=== PATIENT | female | born 1970 | race Caucasian/White ===

== ENCOUNTER 2019-10-22 22:12 | Emergency (ER) | payer OTHER, SELFPAY ==
[2019-10-22 22:17] VITALS: PULSE 92; RESP 18; TEMP 37; O2SAT 98; BMI 30.9
--- NOTE | 2019-10-22 22:43 | ECG_ITS ---
Measurements Intervals [place] Rate: 66 P: 60 WI: 161 QRS: 43 QRSD: 97 T: 23 QT: 387 QTc: 407 SINUS RHYTHM NONSPECIFIC T-WAVE ABNORMALITY No previous ECG available for comparison Electronically Signed On 10-23-2019 8:01:10 CDT by Randy Yanes M.D. [email or web address]
--- NOTE | 2019-10-22 22:44 | ED_ITS ---
HPI - Headache General: Chief Complaint: Headache Stated Complaint: [place] Time Seen by Provider: 10/22/19 22:33 History of Present Illness: HPI Narrative: Consuelo is a very nice 49-year-old female who comes in complaining of headache. She states this is her chronic migraine headache. She has a history of difficult to control bad migraines. She said this headache has not resolved with her at home regimen that she normally uses. The patient does come in requesting relief. She specifically states this was not a sudden onset thunderclap type headache, she has no fever or neck pain or stiffness. She states this is classically like her previous migraines she is just hoping to get relief with something through the IV here as her p.o. and IM medicines at home have not worked. Associated symptoms: Deny chest pain, confusion, diaphoresis, fever(s), malaise, nausea, pre-syncope, rash, syncope or vomiting Review of Systems General: Reports: other (negative unless marked) Const: Denies: fever, chills, body aches, fatigue, malaise or diaphoresis Eyes: Denies: change in vision or blurry vision ENMT: Denies: throat pain, painful swallowing, hoarseness, ear pain, ear discharge, Change in hearing or nasal discharge Card: Denies: chest pain, palpitations, irregular heart rhythm, syncope, pre- syncope, shortness of breath on exertion or shortness of breath when lying down Resp: Denies: shortness of breath, productive cough, non-productive cough, wheezing, coughing up blood or chest congestion GI: Denies: abdominal pain, nausea, vomiting, vomiting blood, coffee grounds in vomit, diarrhea, constipation, cramping, blood in stool or black tarry stool : Denies: flank pain, painful urination, urinary frequency, urinary urgency, decreased urine ouput, urinary incontinence or blood in urine Musc: Denies: neck pain, back pain, extremity pain, extremity swelling, joint pain, joint swelling, joint warmth or joint stiffness Skin/Breast: Denies: rash, skin tenderness or yellow skin Neuro: Reports: headache; Denies: numbness in extremities, weakness in extremities, changes in sensation, lack of coordination, difficulty walking, dizziness, vertigo or confusion Endo: Denies: excessive thirst, tired all the time, cold intolerance, excessive sweating, flushing or hot flashes Charly/Lymph: Denies: easy bruising, easy bleeding, petechiae or enlarged lymph nodes All/Imm: Denies: hives, throat swelling, tongue swelling, facial swelling or acute wheezing PFSH ED PFSH: Medical History Chronic migraine Exposure to COVID-19 virus Surgical History History of History of cholecystectomy History of hand surgery Social History Smoking and tobacco status: never smoked Alcohol intake: never Physical Exam Const: COMMON NORMALS: no apparent distress, oriented x3, no limitations, healthy appearing and well nourished EXAM LIMITATIONS: no altered mental status GENERAL APPEARANCE: cooperative, well kempt and well developed ORIENTATION/CONSCIOUSNESS: Yes awake HENMT: COMMON NORMALS: normocephalic, head/scalp atraumatic, hearing grossly normal bilaterally, external ears normal, EAC's normal, external nose normal and moist oral mucous membranes HEAD & SCALP: normal to inspection, normocephalic and atraumatic FACE & SINUS: normal facial exam and face symmetric NOSE: external nose normal and nares normal EXTERNAL EAR: Yes external ears normal EXTERNAL AUDITORY CANAL: EAC's normal MOUTH: oral and palatal mucosa normal and tongue normal Eye: COMMON NORMALS: PERRL, EOMs intact bilaterally, conjunctivae normal and no scleral icterus GENERAL EYE: normal appearance of both eyes and normal light reflex CONJUNCTIVA: Yes conjunctivae normal SCLERA: sclerae normal CORNEA: Yes corneas normal PUPIL: Yes PERRL DIRECT OPHTHALMOSCOPY: Yes normal light reflex Neck/C-Spine: COMMON NORMALS: full ROM, no lymphadenopathy, supple, no meningeal signs and no JVD GENERAL: Yes normal visual inspection and Yes trachea midline CERVICAL SPINE: Yes cervical ROM normal Chest: COMMONS NORMALS: inspection of chest normal and palpation of chest normal Resp: COMMON NORMALS: normal respiratory effort, no retractions, no use of accessory muscles and clear to auscultation bilaterally EFFORT & INSPECTION: Yes able to speak in complete sentences AUSCULTATION: clear to auscultation bilaterally Cardio: COMMON NORMALS: no JVD, regular rate, regular rhythm, S1 normal heart sound, S2 normal heart sound, no gallops, no clicks, no murmurs and no rub JUGULAR VENOUS DISTENTION: no JVD RATE: regular rate RHYTHM: regular rhythm HEART SOUNDS: S1 normal and S2 normal GI: COMMON NORMALS: soft to palpation, non-tender, no hepatosplenomegaly and no masses INSPECTION: Yes normal to inspection PALPATION: Yes soft and Yes no hepatosplenomegaly : COMMON NORMALS: Yes no CVA tenderness BLADDER/KIDNEY EXAM: Yes no CVA tenderness Back/Pelvis: COMMON NORMALS: no CVA tenderness, thoracic and lumbar spine normal to inspection, no thoracic nor lumbar tenderness and thoraco-lumbar ROM normal Extremity: COMMON NORMALS: normal to inspection, full ROM, normal capillary refill, no joint enlargement, no clubbing, cyanosis or edema and no calf tenderness Neuro: COMMON NORMALS: oriented x3, CN's II-XII intact bilaterally, moves all extremities, no focal motor deficits and no sensory deficits noted MENINGEAL SIGNS: Yes no meningeal signs Psych: COMMON NORMALS: mental status grossly normal, thought process normal, cooperative, affect normal, speech normal and activity/motor behavior normal APPEARANCE: Yes well kempt SPEECH: Yes normal speech THOUGHT PROCESS: normal thought process Skin: COMMON NORMALS: no rashes or lesions noted, skin turgor normal, no jaundice, no petechiae and no mottling GENERAL SKIN EXAM: no rashes or lesions noted and turgor normal Course Vital Signs: Vital signs: Vital Signs Temperature 98.6 F 10/22/19 22:17 Pulse Rate 92 10/22/19 22:17 Respiratory Rate 18 10/22/19 22:17 Pulse Oximetry 98 10/22/19 22:17 MDM - Headache MDM Narrative: Medical decision making narrative: Consueol is feeling much better at this time. She states her headache is a 3 out of 10 and she still has not yet received the Toradol I have prescribed her. She is willing to go ahead and accept this and then will be discharged. She does not want to wait around for any further therapies. She is feeling better and is ready for discharge. Of note the patient has had a COVID-19 exposure, she has previously tested negative but is going to have to be retested so we did so for her at this juncture. The patient has no fever and no neck pain or stiffness or other signs or symptoms of a viral syndrome. The patient can go home and keep her self quarantine until she gets the results. EKG Data^: EKG 1: Attestation: I personally reviewed and interpreted this EKG as follows: EKG interpretation date: 10/22/19 EKG interpretation time: 23:20 Interpretation: Normal sinus rhythm at 66 beats a minute, no acute ST-T wave changes, no blocks, normal intervals. Normal QTC. Discharge Plan Discharge Patient Disposition: Home, Self-Care Clinical Impression: Migraine Qualifiers: Migraine type: unspecified Status migrainosus presence: without status migrainosus Intractability: not intractable Qualified Code(s): G43.909 - Migraine, unspecified, not intractable, without status migrainosus Condition: Stable Prescriptions: No Action topiramate [Topamax] 100 mg tablet 100 mg PO DAILY RF: 0 tizanidine 4 mg tablet 12 mg PO ONCE PRN (Reason: Migraine Headache) RF: 0 Bystolic 20 mg tablet 20 mg PO .QHS RF: 0 memantine [Namenda] 10 mg tablet 10 mg PO ONCE RF: 0 venlafaxine [Effexor XR] 75 mg capsule,extended release 24hr 75 mg PO DAILY RF: 0 temazepam [Restoril] 30 mg capsule 30 mg PO DAILY RF: 0 diphenhydramine HCl 50 mg/mL syringe 100 mg IM .as needed PRN (Reason: Migraine Headache) RF: 0 ketorolac 10 mg tablet 10 mg PO .as needed PRN (Reason: Migraine Headache) RF: 0 lorazepam [Ativan] 2 mg tablet 2 mg PO .as needed PRN (Reason: Migraine Headache) RF: 0 haloperidol 2 mg tablet 2 mg PO .as needed RF: 0 benztropine 2 mg tablet 2 mg PO .as needed RF: 0 Discharge Orders: Discharge Order (Routine); Ordered 10/23/19 Ordered By: Bernarda Peñaloza Referrals: Ashtyn Moreno MD [Physician] - 1-3 days Discharge Diet: Advance as tolerated Discharge Activity: Increase activity as tolerated Patient Instructions: Migraine Headache (ED) Activity Restrictions/Additional Instructions: Please return to the ER immediately for any of the signs or symptoms listed on your discharge instruction sheets, worsening/changing of your symptoms, you are not getting better as quickly as expected, or for ANY other cause or concerns. Coding Level of Care Code ED Header Set Up Operator for Chg Fwd Exam Comprehensive
[2019-10-22] MEDS: haloperidol inj 5 mg/mL INJ 1 mL IVP (23:40)
[2019-10-22] MEDS: sodium chloride 0.9% 1,000 ML 999 ML IV (23:41)
[2019-10-22] MEDS: diphenhydrAMINE 50 mg/mL SDV 1mL IVP (23:41)
[2019-10-22] MEDS: dexamethasone 10 mg/mL INJ IVP (23:41)
[2019-10-23] MEDS: diphenhydrAMINE 50 mg/mL SDV 1mL IVP (00:06)
[2019-10-23] MEDS: ketorolac 30 mg/mL INJ 15 MG IVP (00:41)
[2019-10-23 00:50] VITALS: BP 118/68; PULSE 71; RESP 18; O2SAT 98
--- NOTE | 2019-11-06 10:27 | DCPLANNER ---
spa manager/esthetician had message to schedule a follow up appointment for patient with Dr. Mei office. spa manager/esthetician called the office of Dr. Moreno, spoke with Tomeka. A follow up appointment was scheduled for patient for Wednesday, January 08, 2020 at 10:[address] Moreno. Clinic will call patient with appointment information.
--- NOTE | 2020-01-10 14:46 | DCPLANNER ---
Patient did attend appointment scheduled with Dr. Moreno.
== END 2019-10-23 00:50 | disposition home or self-care (01) ==
PROVIDERS: Emergency Provider Emergency Medicine
DX: G43.909 Migraine, unspecified, not intractable, without status migrainosus (principal)
CPT/HCPCS: 12345; 93005; 96361; 96374; 96375; 96376; 99282; 99283; J1100; J1200; J1630; J1885; J7030

== ENCOUNTER → 2020-03-08 09:52 | Outpatient (BNVA) | payer OTHER, SELFPAY | PROVIDERS: Visit Provider Nurse Practitioner Family | DX: R50.9 Fever, unspecified (principal) | CPT/HCPCS: 87635 ==

== ENCOUNTER → 2020-07-03 08:08 | Outpatient (BNVA) | payer OTHER, SELFPAY | PROVIDERS: Visit Provider Specialist | DX: G43.711 Chronic migraine without aura, intractable, with status migrainosus (principal) | CPT/HCPCS: 64615; J0585 ==

== ENCOUNTER → 2020-07-08 11:34 | Outpatient (BNVA) | payer OTHER, SELFPAY | PROVIDERS: Visit Provider Family Medicine | DX: R09.89 Other specified symptoms and signs involving the circulatory and respiratory systems (principal) | CPT/HCPCS: 87635 ==

== ENCOUNTER 2020-07-17 15:04 | Emergency (ER) | payer OTHER, SELFPAY ==
[2020-07-17 15:25] VITALS: BP 119/81; PULSE 68; RESP 16; TEMP 36.3; O2SAT 100; BMI 30.5
[2020-07-17 15:30] VITALS: BP 140/88; PULSE 70; RESP 18; O2SAT 100
--- NOTE | 2020-07-17 16:25 | W.ED.ALLEREA ---
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 Patient has headache and rash. Patient had mild difficulty breathing. She feels like this is triggered migraine type reaction. She has not had a migraine in quite some time. No fever or chills. Skin rash on face torso and upper extremities. This is not pruritic. She has not had a reaction to vaccination previously. Review of Systems General: Reports: 10 or more systems reviewed and unremarkable except in HPI and below PFSH ED PFSH: Medical History Chronic migraine Exposure to COVID-19 virus Surgical History History of History of cholecystectomy History of hand surgery Social History Smoking and tobacco status: never smoked Alcohol intake: never Physical Exam Const: COMMON NORMALS: no acute distress, patient oriented x3, healthy appearing, alert and well nourished ORIENTATION/CONSCIOUSNESS: Yes oriented to person HENMT: COMMON NORMALS: normocephalic HEAD & SCALP: normal to inspection and normocephalic Eye: COMMON NORMALS: no scleral icterus Resp: COMMON NORMALS: normal respiratory effort EFFORT & INSPECTION: Yes able to speak in complete sentences, Yes symmetric chest movement, No abnormal respiratory pattern and No tachypneic Cardio: COMMON NORMALS: regular rate and regular rhythm RATE: regular rate RHYTHM: regular rhythm Neuro: COMMON NORMALS: patient oriented x3 and CN's II-XII intact bilaterally SENSORIUM/ORIENTATION: Yes alert and Yes oriented to person Psych: COMMON NORMALS: mental status grossly normal, Normal thought process present and cooperative ATTITUDE: Yes calm THOUGHT PROCESS: Normal thought process present Skin: RASHES: rashes noted (Scattered erythematous macules) Course Vital Signs: Vital signs: Vital Signs Temperature 97.3 F L 07/17/20 15:25 Pulse Rate 78 07/17/20 16:55 Respiratory Rate 18 07/17/20 16:55 Blood Pressure 140/88 07/17/20 16:55 Pulse Oximetry 98 07/17/20 16:55 MDM - Allergic Reaction MDM Narrative: Medical decision making narrative: 50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 We will check some routine labs observe her vital signs special education coordinator with steroids and a migraine cocktail and do serial reexaminations. Patient feels much better after intervention here in the emergency department. Headache still remains we will give her an additional dose of Benadryl and magnesium. Patient's allergic type symptoms seemingly have resolved. Patient's been stable she was sleeping when I went in to examine her. I gets reasonable to treat her and release her. I did give her a prescription for a Medrol dose pack should she need it tomorrow. Patient verbalizes understanding. Lab Data: Labs: Lab Results 07/17/20 07/17/20 Range/Units 16:30 16:30 WBC 5.6 (4.0-10.0) 10^3/ uL RBC 5.08 (4.1-5.3) 10^6/u L Hgb 15.0 (11.5-15.3) g/dL Hct 47.1 H (37.0-47.0) % MCV 92.7 (81-99) fL MCH 29.5 (28.0-34.0) pg MCHC 31.8 (30.0-36.0) g/dL RDW 12.7 (12.1-15.1) % Plt Count 220 (130-400) 10^3/c mm MPV 10.6 H (7.4-10.4) fL Neut % (Auto) 63.8 % Lymph % (Auto) 23.7 % [place] % (Auto) 10.7 % Eos % (Auto) 1.1 % Baso % (Auto) 0.5 % Neut # (Auto) 3.58 (1.8-7.7) 10^3/u L Lymph # (Auto) 1.3 (0.8-4.8) 10^3/u L [place] # (Auto) 0.6 (0.2-0.9) 10^3/u L Eos # (Auto) 0.1 (0.0-0.8) 10^3/u L Baso # (Auto) 0.0 (0.0-0.1) 10^3/u L Nucleated RBC % (a uto) 0 % Nucleated RBCs # 0.0 /100WBC Sodium 139 (136-145) mmol/L Potassium 4.3 (3.5-5.1) mmol/L Chloride 105 (98-107) mmol/L Carbon Dioxide 25 (22-29) mmol/L Anion Gap 13.3 (5-19) BUN 11 (6-20) mg/dL Creatinine 0.7 (0.5-0.9) mg/dL GFR Calculation 89.3 L (90-130) mL/min Glucose 91 (65-115) mg/dL Calculated Osmolal ity 287 (285-295) mOsm/k g Calcium 9.4 (8.5-10.5) mg/dL Total Bilirubin 0.5 (0.15-1.2) mg/dL AST 38 H (0-32) U/L ALT 44 H (0-33) U/L Alkaline Phosphata se 115 H (35-105) IU/L Total Protein 7.1 (6.6-8.7) g/dL Albumin 4.5 (3.5-5.2) g/dL Globulin 2.6 (1.3-4.6) g/dL Discharge Plan Discharge Patient Disposition: Home Clinical Impression: Allergic reaction Qualifiers: Encounter type: initial encounter Qualified Code(s): T78.40XA - Allergy, unspecified, initial encounter Headache, migraine Qualifiers: Migraine type: unspecified Status migrainosus presence: with status migrainosus Intractability: intractable Qualified Code(s): G43.911 - Migraine, unspecified, intractable, with status migrainosus Condition: Stable Prescriptions: New Medrol (Shaun) 4 mg tablets,dose pack See Rx Instructions .ROUTE .COMPLEX Qty: 21 RF: 0 No Action topiramate [Topamax] 100 mg tablet 100 mg PO DAILY RF: 0 tizanidine 4 mg tablet 12 mg PO ONCE PRN (Reason: Migraine Headache) RF: 0 Bystolic 20 mg tablet 20 mg PO .QHS RF: 0 memantine [Namenda] 10 mg tablet 10 mg PO ONCE RF: 0 venlafaxine [Effexor XR] 75 mg capsule,extended release 24hr 75 mg PO DAILY RF: 0 temazepam [Restoril] 30 mg capsule 30 mg PO DAILY RF: 0 diphenhydramine HCl 50 mg/mL syringe 100 mg IM .as needed PRN (Reason: Migraine Headache) RF: 0 ketorolac 10 mg tablet 10 mg PO .as needed PRN (Reason: Migraine Headache) RF: 0 lorazepam [Ativan] 2 mg tablet 2 mg PO .as needed PRN (Reason: Migraine Headache) RF: 0 haloperidol 2 mg tablet 2 mg PO .as needed RF: 0 benztropine 2 mg tablet 2 mg PO .as needed RF: 0 Nurtec ODT 75 mg tablet,disintegrating PO RF: 0 Botox 100 unit recon soln 155 unit SUBCUT ONCE Qty: 2 RF: 0 Bystolic 20 mg tablet 20 mg PO DAILY RF: 0 Aimovig Autoinjector 140 mg/mL auto-injector 140 mg SUBCUT ONCE RF: 0 hydroquinone 4 % cream 1 applic TOPICAL DAILY Qty: 28.35 RF: 2 tretinoin [Retin-A] 0.05 % cream 1 applic TOPICAL DAILY Qty: 30 RF: 2 triamterene-hydrochlorothiazid 37.5-25 mg tablet 1 tab PO QAM Qty: 90 RF: 3 Discharge Orders: Discharge ED (Routine); Ordered 07/17/20 Ordered By: Bhanu Colmenares Discharge Diet: Advance as tolerated Discharge Activity: Resume usual activity Activity Restrictions/Additional Instructions: 1. Rest, fluids and OTC pain relievers as directed. 2. Follow up with PCP and fill Rx if symptoms persist. 3. Return to ED for new or worsening symptoms. Coding Level of Care Code ED Disease Management Nurse for Iban Velasquez Exam Comprehensive
[2020-07-17 16:38] LABS: Basophils % 0.5 %; Eosinophils # 0.1 10^3/uL (0.0-0.8); Eosinophils % 1.1 %; Hematocrit 47.1 % (37.0-47.0); Lymphocytes # 1.3 10^3/uL (0.8-4.8); Lymphocytes % 23.7 %; Mean Corpuscular HGB Conc 31.8 g/dL (30.0-36.0); Mean Corpuscular Hemoglobin 29.5 pg (28.0-34.0); Mean Corpuscular Volume 92.7 fL (81-99); Mean Platelet Volume 10.6 fL (7.4-10.4); Monocytes # 0.6 10^3/uL (0.2-0.9); Monocytes % 10.7 %; Neutrophils # 3.58 10^3/uL (1.8-7.7); Neutrophils % 63.8 %; Nucleated Red Blood Cells % 0 %; Platelet Count 220 10^3/cmm (130-400); Red Blood Count 5.08 10^6/uL (4.1-5.3); Red Cell Distribution Width 12.7 % (12.1-15.1); White Blood Count 5.6 10^3/uL (4.0-10.0)
[2020-07-17] MEDS: diphenhydrAMINE 50 mg/mL SDV 1mL IVP ×2 (16:40→18:17)
[2020-07-17] MEDS: metoclopramide 5 mg/mL SDV 2 mL 10 MG IVP (16:40)
[2020-07-17] MEDS: dexamethasone 4 mg/mL INJ 10 MG IVP (16:41)
[2020-07-17] MEDS: sodium chloride 0.9% 1,000 ML 999 ML IV (16:41)
[2020-07-17 16:55] VITALS: BP 140/88; PULSE 78; RESP 18; O2SAT 98
[2020-07-17 17:08] LABS: Albumin Level 4.5 g/dL (3.5-5.2); Alkaline Phosphatase 115 IU/L (35-105); Blood Urea Nitrogen 11 mg/dL (6-20); Calcium 9.4 mg/dL (8.5-10.5); Carbon Dioxide 25 mmol/L (22-29); Chloride 105 mmol/L (98-107); Globulin 2.6 g/dL (1.3-4.6); Glomerular Filtration Rate 89.3 mL/min (90-130); Glucose 91 mg/dL (65-115); Osmolality Calculated 287 mOsm/kg (285-295); Sodium 139 mmol/L (136-145); Total Bilirubin 0.5 mg/dL (0.15-1.2); Total Protein 7.1 g/dL (6.6-8.7)
[2020-07-17 17:13] LABS: Alanine Aminotransferase 44 U/L (0-33); Anion Gap 13.3 (5-19); Aspartate Amino Transferase 38 U/L (0-32); Potassium 4.3 mmol/L (3.5-5.1)
[2020-07-17] MEDS: magnesium sulfate premix 2 GM/50 ML PIGGYBACK IV (18:17)
[2020-07-17 18:57] VITALS: BP 158/90; PULSE 78; RESP 18; TEMP 37.1; O2SAT 96
== END 2020-07-17 19:00 | disposition home or self-care (01) ==
PROVIDERS: Emergency Provider Family Medicine
DX: G43.911 Migraine, unspecified, intractable, with status migrainosus (principal); T78.40XA Allergy, unspecified, initial encounter
CPT/HCPCS: 12345; 80053; 85025; 96365; 96375; 96376; 99283; 99284; J1100; J1200; J2765; J3475; J7030

== ENCOUNTER 2020-08-15 19:28 | Emergency (ER) | payer OTHER, SELFPAY ==
[2020-08-15 19:34] VITALS: BP 135/87; PULSE 94; RESP 18; TEMP 38.1; O2SAT 98; BMI 29.2
--- NOTE | 2020-08-15 19:53 | W.ED.ALLEREA ---
HPI - Allergic Reaction General: Chief complaint: Allergic Reaction Stated complaint: possible reaction to covid vac Time Seen by Provider: 08/15/20 19:48 Source: patient Mode of arrival: ambulatory Limitations: no limitations History of Present Illness: HPI narrative: Patient is a nice 50-year-old female who presents to ED today with complaint of a possible allergic reaction after taking her second COVID immunization. Patient was seen here at our facility after her first immunization for identical symptoms. She states the immunization has also triggered a severe migraine. She is treated at home with IM Benadryl without relief. She is complaining currently of a rash to her forearms and face, the migraine, and nausea. MD complaint: allergic reaction and other (migraine HERNÁNDEZ, nausea, rash) Onset (ago): hour(s) Exposure: other (COVID immunization ) Associated symptoms: Reports nausea; Deny abdominal pain, dizziness or vomiting Severity: moderate Treatment prior to arrival: benadryl Previous Allergic Reaction History: prior ED visit(s) (after 1st immunization ) Review of Systems Const: Denies: fever(s), chills, body aches, fatigue or malaise Eyes: Denies: change in vision, blurry vision or photophobia ENMT: Reports: other (no throat/tongue swelling, no difficulty swallowing); Denies: throat pain or odynophagia Card: Denies: chest pain Resp: Denies: dyspnea GI: Reports: nausea; Denies: abdominal pain, vomiting or diarrhea Musc: Denies: neck pain, back pain, extremity pain, extremity swelling, joint pain or joint swelling Skin/Breast: Reports: rash Neuro: Reports: headache(s); Denies: numbness in extremities, weakness in extremities, sensory changes, dizziness or vertigo PFS ED PFSH: Medical History Chronic migraine Exposure to COVID-19 virus Surgical History History of History of cholecystectomy History of hand surgery Social History Smoking and tobacco status: never smoked Alcohol intake: never Physical Exam Const: COMMON NORMALS: no acute distress, average body habitus, patient oriented x3, no limitations, healthy appearing, alert and well nourished GENERAL APPEARANCE: cooperative ORIENTATION/CONSCIOUSNESS: Yes awake, Yes oriented to person, Yes oriented to place and Yes oriented to time HENMT: COMMON NORMALS: normocephalic and atraumatic HEAD & SCALP: normocephalic and atraumatic OTHER: no angioedema Resp: COMMON NORMALS: normal respiratory effort and clear to auscultation bilaterally AUSCULTATION: clear to auscultation bilaterally Cardio: COMMON NORMALS: regular rate and regular rhythm RATE: regular rate RHYTHM: regular rhythm Extremity: GENERAL: Yes normal exam except as noted Neuro: [place] COMA SCALE: document GCS findings [place] coma scale eye opening: Spontaneous [place] coma scale verbal response: Orientated [place] coma scale motor response: Obey commands [place] coma scale total score: 15 COMMON NORMALS: patient oriented x3 SENSORIUM/ORIENTATION: Yes alert, Yes oriented to person, Yes oriented to place and Yes oriented to time Skin: NARRATIVE SKIN EXAM: mild erythema to bilateral forearms and face Course Vital Signs: Vital signs: Vital Signs Temperature 100.5 F H 08/15/20 19:34 Pulse Rate 95 08/15/20 20:26 Respiratory Rate 18 08/15/20 20:26 Blood Pressure 131/97 08/15/20 20:26 Pulse Oximetry 100 08/15/20 20:26 MDM - Allergic Reaction MDM Narrative: Medical decision making narrative: Patient feels much better after IV fluids/medications. She feels comfortable going home at this time. Discharge Plan Discharge Patient Disposition: Home Clinical Impression: Immunization reaction Qualifiers: Encounter type: initial encounter Qualified Code(s): T50.Z95A - Adverse effect of other vaccines and biological substances, initial encounter Migraine Qualifiers: Migraine type: without aura Status migrainosus presence: without status migrainosus Intractability: not intractable Qualified Code(s): G43.009 - Migraine without aura, not intractable, without status migrainosus Condition: Stable Prescriptions: No Action topiramate [Topamax] 100 mg tablet 100 mg PO DAILY RF: 0 tizanidine 4 mg tablet 12 mg PO ONCE PRN (Reason: Migraine Headache) RF: 0 Bystolic 20 mg tablet 20 mg PO .QHS RF: 0 memantine [Namenda] 10 mg tablet 10 mg PO ONCE RF: 0 venlafaxine [Effexor XR] 75 mg capsule,extended release 24hr 75 mg PO DAILY RF: 0 temazepam [Restoril] 30 mg capsule 30 mg PO DAILY RF: 0 diphenhydramine HCl 50 mg/mL syringe 100 mg IM .as needed PRN (Reason: Migraine Headache) RF: 0 ketorolac 10 mg tablet 10 mg PO .as needed PRN (Reason: Migraine Headache) RF: 0 lorazepam [Ativan] 2 mg tablet 2 mg PO .as needed PRN (Reason: Migraine Headache) RF: 0 haloperidol 2 mg tablet 2 mg PO .as needed RF: 0 benztropine 2 mg tablet 2 mg PO .as needed RF: 0 Nurtec ODT 75 mg tablet,disintegrating PO RF: 0 Botox 100 unit recon soln 155 unit SUBCUT ONCE Qty: 2 RF: 0 Bystolic 20 mg tablet 20 mg PO DAILY RF: 0 Aimovig Autoinjector 140 mg/mL auto-injector 140 mg SUBCUT ONCE RF: 0 hydroquinone 4 % cream 1 applic TOPICAL DAILY Qty: 28.35 RF: 2 tretinoin [Retin-A] 0.05 % cream 1 applic TOPICAL DAILY Qty: 30 RF: 2 triamterene-hydrochlorothiazid 37.5-25 mg tablet 1 tab PO QAM Qty: 90 RF: 3 Medrol (Shaun) 4 mg tablets,dose pack See Rx Instructions .ROUTE .COMPLEX Qty: 21 RF: 0 Discharge Orders: Discharge ED (Routine); Ordered 08/15/20 Ordered By: Ledy Reyes Coding Level of Care Code ED Weatherization Field Technician for Chg Fwd Exam Detailed
[2020-08-15] MEDS: metoclopramide 5 mg/mL SDV 2 mL 10 MG IVP (20:20)
[2020-08-15] MEDS: sodium chloride 0.9% 1,000 ML 999 ML IV (20:21)
[2020-08-15] MEDS: dexamethasone 10 mg/mL INJ 8 MG IV (20:21)
[2020-08-15] MEDS: diphenhydrAMINE 50 mg/mL SDV 1mL IVP (20:21)
[2020-08-15 20:26] VITALS: BP 131/97; PULSE 95; RESP 18; O2SAT 100
[2020-08-15] MEDS: ketorolac 30 mg/mL INJ IVP (21:32)
[2020-08-15 21:51] VITALS: BP 145/104; PULSE 93; RESP 18; O2SAT 98
== END 2020-08-15 21:51 | disposition home or self-care (01) ==
PROVIDERS: Emergency Provider Physician Assistant
DX: T88.1XXA Other complications following immunization, not elsewhere classified, initial encounter (principal); T50.Z95A Adverse effect of other vaccines and biological substances, initial encounter; G43.009 Migraine without aura, not intractable, without status migrainosus
CPT/HCPCS: 12345; 96361; 96374; 96375; 99282; 99283; J1100; J1200; J1885; J2765; J7030

== ENCOUNTER → 2020-09-25 08:17 | Outpatient (BNVA) | payer OTHER, SELFPAY | PROVIDERS: Visit Provider Specialist | DX: G43.709 Chronic migraine without aura, not intractable, without status migrainosus (principal) | CPT/HCPCS: 64615; J0585 ==

== ENCOUNTER → 2021-02-10 17:12 | Outpatient (BNVA) | payer OTHER, SELFPAY | PROVIDERS: Visit Provider Nurse Practitioner Family | DX: R51.9 Headache, unspecified (principal); Z20.822 Contact with and (suspected) exposure to COVID-19 | CPT/HCPCS: 87635 ==

== ENCOUNTER 2021-05-13 18:12 | Emergency (ER) | payer OTHER, SELFPAY ==
[2021-05-13 18:26] VITALS: PULSE 76; RESP 16; O2SAT 99; BMI 30.1
--- NOTE | 2021-05-13 18:43 | W.ED.GENADLT ---
HPI - General Adult General: Chief complaint: Needlestick/Injury/Exposure Stated complaint: Stabbed with Scalpel Time Seen by Provider: 05/13/21 18:22 Source: patient Mode of arrival: ambulatory Limitations: no limitations History of Present Illness: HPI narrative: Patient is a nice 50-year-old female who presents to ED today for workers comp injury. 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 She states she was performing an I&D to a back abscess on a patient when she accidentally cut/stabbed her left thumb. She states she allowed wound to bleed and irrigated copiously and then had the PEDIGREE RESEARCHER at the clinic dermabond laceration. HIV/hepatitis status of source patient unknown. Patient's tetanus is UTD. She also complains of a migraine x 5 days. Patient suffers from chronic migraines. Onset (ago): hour(s) Location: left (thumb) Associated symptoms: Reports headache(s) and nausea; Deny vomiting Review of Systems GI: Reports: nausea; Denies: vomiting Skin/Breast: Reports: other (puncture wound L thumb) Neuro: Reports: headache(s) PFSH ED PFSH: Medical History Chronic migraine Exposure to COVID-19 virus Surgical History History of History of cholecystectomy History of hand surgery Social History Smoking and tobacco status: never smoked Alcohol intake: never Physical Exam Const: COMMON NORMALS: no acute distress, average body habitus, no limitations, healthy appearing, alert and well nourished GENERAL APPEARANCE: cooperative Extremity: OTHER: small puncture/laceration to L distal thumb; no nail involvement; wound is closed with dermabond Neuro: SENSORIUM/ORIENTATION: Yes alert Course Vital Signs: Vital signs: Vital Signs Pulse Rate 80 05/13/21 21:17 Respiratory Rate 15 05/13/21 21:17 Blood Pressure 142/93 05/13/21 21:17 Pulse Oximetry 99 05/13/21 21:17 MDM - General Adult MDM Narrative: Medical decision making narrative: Migraine has improved here and she feels comfortable going home. Employee labs drawn. Patient does not want to initiate PEP for HIV. a p supervisor contacted who will provide consent paperwork for patient to give to clinical lab clerk tomorrow so they can contact patient and have him come to clinic for lab draw. Will cover with Bactrim given the purulent drainage that was on scalpel during injury. Tetanus UTD. Lab Data: Labs: Lab Results 05/13/21 05/13/21 20:00 20:00 Hep Bs Antigen Non-reactive (Nonreactive) Hep Bs Antibody 17.0 (11.5-1000) Hepatitis C Antibo dy Non-reactive (Nonreactive) HIV 1&2 Ab & HIV 1 Ag Non-reactive (Non-Reactiv) HIV 1&2 Antibody Non-reactive (Non-Reactiv) Discharge Plan Discharge Patient Disposition: Home Clinical Impression: Migraine headache, Employee exposure to body fluids Condition: Stable Prescriptions: New Bactrim DS 800-160 mg tablet 1 tab PO BID 7 Days Qty: 14 RF: 0 No Action topiramate [Topamax] 100 mg tablet 100 mg PO DAILY RF: 0 tizanidine 4 mg tablet 12 mg PO ONCE PRN (Reason: Migraine Headache) RF: 0 Bystolic 20 mg tablet 20 mg PO .QHS RF: 0 memantine [Namenda] 10 mg tablet 10 mg PO ONCE RF: 0 venlafaxine [Effexor XR] 75 mg capsule,extended release 24hr 75 mg PO DAILY RF: 0 temazepam [Restoril] 30 mg capsule 30 mg PO DAILY RF: 0 diphenhydramine HCl 50 mg/mL syringe 100 mg IM .as needed PRN (Reason: Migraine Headache) RF: 0 ketorolac 10 mg tablet 10 mg PO .as needed PRN (Reason: Migraine Headache) RF: 0 lorazepam [Ativan] 2 mg tablet 2 mg PO .as needed PRN (Reason: Migraine Headache) RF: 0 haloperidol 2 mg tablet 2 mg PO .as needed RF: 0 benztropine 2 mg tablet 2 mg PO .as needed RF: 0 Nurtec ODT 75 mg tablet,disintegrating PO RF: 0 Bystolic 20 mg tablet 20 mg PO DAILY RF: 0 Aimovig Autoinjector 140 mg/mL auto-injector 140 mg SUBCUT ONCE RF: 0 Dayvigo 10 mg tablet PO RF: 0 triamterene-hydrochlorothiazid 37.5-25 mg tablet 1 tab PO QAM Qty: 90 RF: 3 losartan 25 mg tablet 25 mg PO DAILY Qty: 30 RF: 0 hydroquinone 4 % cream 1 applic TOPICAL DAILY Qty: 28.35 RF: 2 tretinoin [Retin-A] 0.05 % cream 1 applic TOPICAL DAILY Qty: 30 RF: 2 azithromycin [Zithromax] 250 mg tablet See Rx Instructions PO .COMPLEX Qty: 6 RF: 0 Medrol (Shaun) 4 mg tablets,dose pack See Rx Instructions .ROUTE .COMPLEX Qty: 21 RF: 0 promethazine-DM 6.25-15 mg/5 mL syrup 5 ml PO Q6H PRN (Reason: cough) Qty: 200 RF: 0 Discharge Orders: Discharge ED (Routine); Ordered 05/13/21 Ordered By: Ledy Reyes Patient Instructions: Blood/Body Fluid Exposure - Occupational Activity Restrictions/Additional Instructions: Please follow up with Worker's Comp as directed on paperwork. Coordinate closely with clinical laboratory medical director so source patient gets labs drawn (pending consent). Coding Level of Care Code ED Trolley Collector for Iban Velasquez Exam Problem Focused
[2021-05-13] MEDS: ondansetron 2 mg/ML SDV 2 mL 4 MG IVP (20:14)
[2021-05-13] MEDS: diphenhydrAMINE 50 mg/mL SDV 1mL IVP ×2 (20:14→20:44)
[2021-05-13 20:55] LABS: HIV 1 & 2 Antibody Non-Reactive (Non-Reactiv); HIV 1 & 2 Antigen Non-Reactive (Non-Reactiv)
[2021-05-13 21:17] VITALS: BP 142/93; PULSE 80; RESP 15; O2SAT 99
[2021-05-13 21:18] LABS: Hepatitis B Surface Antigen Non-Reactive (Nonreactive); Hepatitis C Virus Antibody Non-Reactive (Nonreactive)
== END 2021-05-13 21:21 | disposition home or self-care (01) ==
PROVIDERS: Emergency Provider Physician Assistant
DX: S61.032A Puncture wound without foreign body of left thumb without damage to nail, initial encounter (principal); W26.8XXA Contact with other sharp object(s), not elsewhere classified, initial encounter; Y92.59 Other trade areas as the place of occurrence of the external cause; Y99.0 Civilian activity done for income or pay; Z77.21 Contact with and (suspected) exposure to potentially hazardous body fluids; G43.909 Migraine, unspecified, not intractable, without status migrainosus; Z79.899 Other long term (current) drug therapy
CPT/HCPCS: 86706; 86803; 87340; 87806; 96374; 96375; 99283; J1200; J2405

== ENCOUNTER → 2021-08-01 16:03 | Outpatient (BNVA) | payer OTHER, SELFPAY | PROVIDERS: Visit Provider Nurse Practitioner Family | DX: Z20.822 Contact with and (suspected) exposure to COVID-19 (principal); J18.9 Pneumonia, unspecified organism | CPT/HCPCS: 87635 ==

== ENCOUNTER → 2021-12-29 11:46 | Outpatient (BNVA) | payer OTHER, SELFPAY | PROVIDERS: Visit Provider Nurse Practitioner Family | DX: G43.709 Chronic migraine without aura, not intractable, without status migrainosus (principal); Z13.6 Encounter for screening for cardiovascular disorders | CPT/HCPCS: 80053; 80061; 83036; 83090; 84443; 85025 ==

== ENCOUNTER → 2022-04-15 10:00 | Outpatient (BNVA) | payer OTHER, SELFPAY | PROVIDERS: Visit Provider Nurse Practitioner Family | DX: O92.70 Unspecified disorders of lactation (principal) | CPT/HCPCS: 84146 ==

== ENCOUNTER 2022-04-28 08:38 | Outpatient (CLI) | payer OTHER, SELFPAY ==
--- NOTE | 2022-04-28 09:30 | MM_ITS ---
WS: [id number] DIAGNOSTIC BILATERAL DIGITAL BREAST TOMOSYNTHESIS MAMMOGRAPHY WITH CAD HISTORY: NIPPLE DISCHARGE AND PAIN COMPARISON: None available. Prior mammograms have been discarded from an outside institution. TECHNIQUE: Bilateral craniocaudad, mediolateral oblique, and mediolateral views are submitted with to moserik and SM. Spot compression views bilateral CC. Computer aided detection utilized. Breast composition: The breasts are heterogeneously dense, which may obscure small masses. 6 mm well- circumscribed mass in the inferior LEFT breast towards 7:00. Mass at a middle depth. There is also be nign cluster of calcifications. Benign cluster of calcifications in the posterior medial LEFT breast. There are no dilated ducts or nipple retraction. MM/[place] [address] IMPRESSION: BI-RADS: 0-Incomplete: Need additional imaging evaluation FOLLOW UP: Need Additional Imaging Recommendation: LEFT breast ultrasound, limited. Ultrasound directed towards 7: 00 LEFT breast at a middle depth. Possible 6 mm mass. Bilateral breast ultrasound directed to the subareolar locations to evaluate th e ducts for possible intraductal debris or papilloma.
== END 2022-04-28 08:39 | disposition home or self-care (01) ==
PROVIDERS: PCP Nurse Practitioner Family; Visit Provider Nurse Practitioner Family
DX: R92.8 Other abnormal and inconclusive findings on diagnostic imaging of breast (principal); N64.52 Nipple discharge; N64.4 Mastodynia
CPT/HCPCS: 77062

== ENCOUNTER 2022-05-05 08:23 | Outpatient (CLI) | payer OTHER, SELFPAY ==
--- NOTE | 2022-05-05 07:45 | US_ITS ---
WS: [id number] ULTRASOUND BILATERAL BREAST HISTORY: Inconclusive findings on mammogram. COMPARISON: 04/28/2022 TECHNIQUE: 2-D and Doppler. LEFT breast, limited. At 6:00 there is a small cluster of cysts, 2 cm from the nipple measuring 6 x 3 x 8 mm. This correspo nds to the mammographic abnormality. There are a few additional scattered cysts throughout the breast . Bilateral areolar, limited. Ultrasound is performed around each nipple to evaluate the ducts and for possible papilloma. There are no dilated ducts and no mass or increased vascularity. US/US breast BI limited* [id number] IMPRESSION: BI-RADS: 2-Benign FOLLOW-UP: 1 Year Follow-up
== END 2022-05-05 08:24 | disposition home or self-care (01) ==
PROVIDERS: PCP Nurse Practitioner Family; Visit Provider Nurse Practitioner Family
DX: R92.8 Other abnormal and inconclusive findings on diagnostic imaging of breast (principal)
CPT/HCPCS: 76642

== ENCOUNTER → 2022-08-13 11:40 | Outpatient (BNVA) | payer OTHER, SELFPAY | PROVIDERS: PCP Nurse Practitioner Family; Visit Provider Nurse Practitioner Family | DX: L65.9 Nonscarring hair loss, unspecified (principal) | CPT/HCPCS: 80053; 82306; 82607; 83735; 84439; 84443; 86038 ==

== ENCOUNTER 2022-12-15 14:26 | Outpatient (CLI) | payer OTHER, SELFPAY ==
--- NOTE | 2022-12-15 14:36 | XRR_ITS ---
PROCEDURE INFORMATION: Exam: XR Pelvis Exam date and time: 12/15/2022 2:59 PM Age: 52 years old Clinical indication: Injury or trauma; Other: Fell out of rolling chair; Blunt trauma (contusions or hematomas); Does not apply; Pelvic region; Injury date: 12/14/22; Additional info: Recent fall injury TECHNIQUE: Imaging protocol: Radiologic exam of the pelvis. Views: 1 or 2 view. COMPARISON: No relevant prior studies available. FINDINGS: Bones/joints: Unremarkable. No acute fracture. Soft tissues: IUD projects within the pelvis. XR/XR pelvis 1-2V* [id number] IMPRESSION: No acute findings.
== END 2022-12-15 14:27 | disposition home or self-care (01) ==
PROVIDERS: PCP Nurse Practitioner Family; Visit Provider Nurse Practitioner Family
DX: S39.92XA Unspecified injury of lower back, initial encounter (principal); W07.XXXA Fall from chair, initial encounter
CPT/HCPCS: 72170

== ENCOUNTER → 2023-02-15 13:11 | Outpatient (BNVA) | payer OTHER, SELFPAY | PROVIDERS: PCP Nurse Practitioner Family; Visit Provider Nurse Practitioner Family | DX: L65.9 Nonscarring hair loss, unspecified (principal); N18.31 Chronic kidney disease, stage 3a; Z83.3 Family history of diabetes mellitus; E53.8 Deficiency of other specified B group vitamins; E55.9 Vitamin D deficiency, unspecified | CPT/HCPCS: 80053; 82306; 82607; 83036; 84443 ==

== ENCOUNTER → 2023-11-02 13:23 | Outpatient (BNVA) | payer OTHER, SELFPAY | PROVIDERS: PCP Nurse Practitioner Family; Visit Provider Nurse Practitioner Women's Health | DX: Z12.4 Encounter for screening for malignant neoplasm of cervix (principal); Z30.431 Encounter for routine checking of intrauterine contraceptive device; N95.1 Menopausal and female climacteric states | CPT/HCPCS: 87624 ==